=== PATIENT | male | born 1945 | race Caucasian/White ===

== ENCOUNTER → 2016-09-10 | Outpatient (CLI) | payer MEDICARE ==
[~2016-09-10] MED LIST: ACHYD1T PO; CHOL50003 PO; GLIP5TAB13 PO; IBUP-30 PO; LISI10TA PO; LOVA10TA PO; METF-380 PO; METO100T2 PO; NITR-33 PO; OMG1KC PO; TMSL.4C PO
--- NOTE | 2016-09-10 14:14 | Diagnostic Imaging Report ---
INDICATION: Nephrolithiasis. EXAMINATION: KUB at 1:23 PM. FINDINGS: There are two small calcifications projecting over the left kidney. There are no calcifications seen in the right kidney or in either ureteral distribution. IMPRESSION: Left nephrolithiasis. Dictated by: Dictated on workstation # [id number]
== END ==
LOC: RAD 12:59
PROVIDERS: ATTEND Urology
DX: N20.1 Calculus of ureter (principal)
CPT/HCPCS: 74000